=== PATIENT | female | born 1935 | race Caucasian/White ===

== ENCOUNTER 2019-02-15 18:16 | Emergency (ER) | payer MEDICARE, OTHER ==
[~2019-02-15] VITALS: Ht 152.4 cm; Wt 59.1 kg
[2019-02-15 18:20] VITALS: Ht 152.4 cm; Wt 59.1 kg
--- NOTE | 2019-02-15 18:30 | ERD ---
ER Documentation Chief Complaint Chief Complaint CHEST PAIN, BACK PAIN, WEAKNESS, ONSET TODAY HPI 83-year-old female brought in by daughter complaining of chest pain, back pain, and generalized weakness. This started this morning. She has had episodes of these pains with associated diaphoresis and shaking per her daughter. A few days ago she had similar symptoms and was taken to [facility]. At that time all her tests were reportedly normal. She was advised admission, however patient refused and daughter took her home. She is not sure if the patient has had fevers. Patient currently states that she is not having any symptoms. She is unable to tell me more about her symptoms as she does not remember, likely secondary to her Alzheimer's dementia. Daughter also has noticed that the patient has had urinary frequency but has only minimal urine output when she goes to the restroom. However she has not been complaining of any pain with urination. ROS Limited due to memory problems Medications Home Meds Active Scripts Cephalexin* (Keflex*) 500 Mg Capsule, 500 MG PO BID for 7 Days, CAP Prov:PAT GERARDO MD 02/15/19 Allergies Allergies: Coded Allergies: No Known Allergy (Unverified , 02/15/19) PMhx/Soc History of Surgery: Yes (Cardiac stents x3) Hx Cardiac Disorders: Yes (Hypertension, CAD, history of VT 15 years ago) Hx Alcohol Use: No Hx Substance Use: No Hx Tobacco Use: No Smoking Status: Never smoker FmHx Family History: No diabetes Physical Exam Vitals Vital Signs Date Temp Pulse Resp B/P (MAP) Pulse Ox O2 O2 Flow FiO2 Time Delivery Rate 02/15/19 98.4 86 15 143/80 99 Room Air 19:15 (101) 02/15/19 97.8 101 18 143/80 97 18:20 (101) Physical Exam Const: No acute distress Head: Atraumatic Eyes: Normal Conjunctiva, PERRLA, EOMI ENT: Normal External Ears, Nose and Mouth. Neck: Full range of motion. No meningismus. Resp: Clear to auscultation bilaterally Cardio: Regular rate and rhythm, no murmurs. 2+ distal pulses in all 4 extremities Abd: Soft, non tender, non distended. Normal bowel sounds Skin: No petechiae or rashes Back: No midline or flank tenderness Ext: No cyanosis, or edema Neur: Awake and alert, normal speech, no facial asymmetry, moving all extremities. Following commands. Psych: Normal Mood and Affect Result Diagram: 02/15/19183302/15/191833 Results 24 hrs Laboratory Tests Test 02/15/19 18:34 02/15/19 19:02 White Blood Count 9.1 10^3/ul Red Blood Count 4.38 10^6/ul Hemoglobin 11.9 g/dl Hematocrit 38.2 % Mean Corpuscular Volume 87.2 fl Mean Corpuscular Hemoglobin 27.2 pg Mean Corpuscular Hemoglobin Concent 31.2 g/dl Red Cell Distribution Width 14.3 % Platelet Count 398 10^3/UL Mean Platelet Volume 9.9 fl Immature Granulocytes % 0.200 % Neutrophils % 73.3 % Lymphocytes % 17.0 % Monocytes % 7.4 % Eosinophils % 1.6 % Basophils % 0.5 % Nucleated Red Blood Cells % 0.0 /100WBC Immature Granulocytes # 0.020 10^3/ul Neutrophils # 6.7 10^3/ul Lymphocytes # 1.6 10^3/ul Monocytes # 0.7 10^3/ul Eosinophils # 0.2 10^3/ul Basophils # 0.1 10^3/ul Nucleated Red Blood Cells # 0.0 10^3/ul Urine Color YELLOW Urine Clarity CLEAR Urine pH 5.0 Urine Specific [place] 1.014 Urine Ketones TRACE mg/dL Urine Nitrite NEGATIVE mg/dL Urine Bilirubin NEGATIVE mg/dL Urine Urobilinogen NEGATIVE mg/dL Urine Leukocyte Esterase NEGATIVE Mitchell/ul Urine Hemoglobin NEGATIVE mg/dL Urine Glucose NEGATIVE mg/dL Urine Total Protein NEGATIVE mg/dl Sodium Level 142 mmol/L Potassium Level 4.3 mmol/L Chloride Level 105 mmol/L Carbon Dioxide Level 27 mmol/L Anion Gap 10 Blood Urea Nitrogen 17 mg/dl Creatinine 0.75 mg/dl Est Glomerular Filtrat Rate mL/min mL/min Glucose Level 113 mg/dl Calcium Level 9.3 mg/dl Total Bilirubin 0.4 mg/dl Direct Bilirubin 0.00 mg/dl Indirect Bilirubin 0.4 mg/dl Aspartate Amino Transf (AST/SGOT) 22 IU/L Alanine Aminotransferase (ALT/SGPT) 24 IU/L Alkaline Phosphatase 60 IU/L Troponin I < 0.012 ng/ml Total Protein 7.0 g/dl Albumin 4.0 g/dl Globulin 3.00 g/dl Albumin/Globulin Ratio 1.33 Bedside Urine pH (LAB) 6.0 Bedside Urine Protein (LAB) 1+ Bedside Urine Glucose (UA) Negative Bedside Urine Ketones (LAB) Trace Bedside Urine Blood Trace-intact Bedside Urine Nitrite (LAB) Negative Bedside Urine Leukocyte Esterase (L 3+ Current Medications Medications Dose Sig/Umu Start Time Status Last (Trade) Ordered Route PRN Stop Time Admin Dose Reason Admin Sodium 1,000 ml @ Q1H STAT 02/15/19 DC 02/15/19 Chloride 1,000 mls/hr IV 19:12 19:24 02/15/19 20:11 Ceftriaxone 50 ml @ ONCE STAT 02/15/19 DC 02/15/19 Sodium 100 mls/hr IVPB 19:12 19:24 02/15/19 19:41 Procedures/MDM EMERGENT LABS AND DIAGNOSTIC STUDIES: Lab Results above were reviewed and interpreted by me. CBC: no clinically significant anemia or evidence of infection CMP: No evidence of clinically significant electrolyte abnormality, acidosis, renal failure, hypoglycemia, liver disease, or biliary obstruction Troponin within normal limits, not indicative of cardiac ischemia Urine dip concerning for infection with 3+ leuk esterase Urinalysis shows ketones, no other acute abnormalities 12-lead EKG #1 was interpreted by Carolyn Gerardo MD: Normal sinus rhythm at 98 bpm Left deviation axis Normal intervals No acute ST or T wave changes suggestive of acute ischemia or STEMI. EKG #2: Rate/Rhythm: Normal Sinus Rhythm QRS, ST, T-waves: No changes consistent w/ acute ischemia Impression: No evidence of ischemia or arrhythmia Radiology Results as interpreted by Radiology below were reviewed by SRianna Gerardo MD: Chest x-ray shows no acute abnormalities Initial Nursing notes reviewed. Previous Medical Records requested via the Electronic Health Record. EMERGENCY DEPARTMENT COURSE / MEDICAL DECISION MAKING: patient presents with complaints of chest pain and back pain, now resolved. Vitals are unremarkable. Basic labs were done and did not show any significant abnormalities. Troponin is within normal limits. EKG shows no signs of ischemia or arrhythmia. Chest x-ray is unremarkable. Patient has been asymptomatic while here. She was noted to have a possible UTI and with her symptoms, I cannot rule out a UTI at this time. I recommended IV fluids and IV antibiotics, and daughter was agreeable. I did offer her admission for further work-up for her chest pain, however patient and daughter want to go home and will follow up with her roll edge stitcher hand tomorrow. Return precautions given. Patient's blood pressure was elevated (>120/80) but appears stable without evidence of hypertensive emergency or urgency. The patient was counseled about the risks of hypertension and urged to pursue outpatient monitoring and therapy within a week with their primary care physician. Departure Diagnosis: Primary Impression: Chest pain Chest pain type: unspecified Qualified Codes: R07.9 - Chest pain, unspecified Additional Impression: Urinary frequency Condition: PAT Iqbal MD Feb 15, 2019 18:30
[2019-02-15] MEDS ORDERED: SOD CHLORIDE 0.9% 1,000 ML IV STA (19:12)
[2019-02-15] MEDS ORDERED: CEFTRIAXONE 1 GM/50 ML (PMX) 50 ML IVPB STA (19:12)
[2019-02-15 19:15] VITALS: BP 143/80; PULSE 86; RESP 15
[2019-02-15] MEDS ORDERED: CEPH-443 PO (20:47)
== END 2019-02-15 21:24 | disposition home or self-care (01) ==
LOC: E/R 18:16
DX: R07.9 Chest pain, unspecified (principal); I10 Essential (primary) hypertension; I25.10 Atherosclerotic heart disease of native coronary artery without angina pectoris; I25.2 Old myocardial infarction; R35.0 Frequency of micturition; Z98.61 Coronary angioplasty status
CPT/HCPCS: 36415; 71045; 80053; 81003; 84484; 85025; 93005; 96374; 99285; J0696; J7030

== ENCOUNTER 2019-02-28 17:51 | Inpatient (IN) | payer MEDICARE, OTHER ==
[~2019-02-28] VITALS: Ht 154.9 cm; Wt 61.9 kg
[~2019-02-28 17:51] MED LIST: CEPH-443 PO
[2019-02-28] MEDS ORDERED: SOD CHLORIDE 0.9% 500 ML IV STA (18:05)
[2019-02-28] MEDS ORDERED: SOD CHLORIDE 0.9% 1,000 ML IV STA (18:05)
--- NOTE | 2019-02-28 18:24 | ERD ---
ER Documentation Chief Complaint Chief Complaint WEAKNESS SINCE YESTERDAY. DX UTI LAST WEEK HPI 83-year-old female with a history of CAD and Alzheimer's dementia brought in by daughter from home due to altered mental status since yesterday. This morning she was having some difficulty swallowing. She has been very somnolent today and difficult to arouse per daughter. Daughter has been carrying her to the bathroom to use the toilet. Patient normally walks. She has had no recent fevers, vomiting, diarrhea, or any complaints. Otherwise history is limited as the patient is unresponsive. Last seen normal at 12 noon yesterday. ROS Unable to obtain as patient is altered and not answering questions Medications Home Meds Active Scripts Cephalexin* (Keflex*) 500 Mg Capsule, 500 MG PO BID for 7 Days, CAP Prov:PAT GERARDO MD 02/15/19 Allergies Allergies: Coded Allergies: No Known Allergy (Unverified , 02/15/19) PMhx/Soc History of Surgery: Yes (Cardiac stents x3) Anesthesia Reaction: No Hx Neurological Disorder: No Hx Respiratory Disorders: No Hx Cardiac Disorders: Yes (Hypertension, CAD, history of SD 15 years ago) Hx Psychiatric Problems: Yes (DEPRESSION ) Hx Miscellaneous Medical Probl: No Hx Alcohol Use: No Hx Substance Use: No Hx Tobacco Use: No Smoking Status: Never smoker FmHx Unable to obtain Physical Exam Vitals Vital Signs Date Temp Pulse Resp B/P (MAP) Pulse Ox O2 O2 Flow FiO2 Time Delivery Rate 02/28/19 100.2 20:59 02/28/19 94 23 127/57 97 Room Air 20:25 (80) 02/28/19 Nasal 2 19:14 Cannula 02/28/19 98.6 114 16 96/32 (53) 95 18:03 Physical Exam INITIAL VITAL SIGNS: Reviewed by me GENERAL: Patient is lying on gurney HEAD: Normocephalic EYES: Resists eye opening. PERRL. No icterus. No pallor. Lids, lashes, and conjunctiva clear. ENT: Mucous membranes dry, no erythema or tonsillar exudates. Airway patent. NECK: Supple. No masses. Full range of motion. No meningismus. No lymphadenopathy RESPIRATORY: Clear to auscultation bilaterally. No wheezing, No rales, No rhonchi. No accessory muscle use. No retractions. CV: Tachycardic with regular rhythm. No murmurs, No rubs or gallops.. 2+ distal pulses in all 4 extremities ABDOMEN: Soft, non-distended, non-tender. No guarding. No rebound. No pulsatile mass. Bowel sounds normal. BACK: Non-tender. No CVA tenderness. EXTREMITIES: No edema. No clubbing or cyanosis. Pulses symmetric. No deficits or delays. Calves non-tender. No cords. SKIN: Warm and dry. Decreased turgor. No obvious rash, petechiae or purpura. NEUROLOGIC: Obtunded, moans to painful stimuli. Withdraws from painful stimuli. Increased tone in all 4 extremities. No obvious facial asymmetry. Result Diagram: 02/28/19182302/28/191823 Results 24 hrs Laboratory Tests Test 02/28/19 18:18 02/28/19 18:22 02/28/19 18:24 POC Venous Lactate 1.9 mmol/L Urine Color YELLOW Urine Clarity SLIGHTLY CLOUDY Urine pH 5.0 Urine Specific [place] 1.025 Urine Ketones NEGATIVE mg/dL Urine Nitrite NEGATIVE mg/dL Urine Bilirubin NEGATIVE mg/dL Urine Urobilinogen NEGATIVE mg/dL Urine Leukocyte Esterase 1+ Mitchell/ul Urine Microscopic RBC 7 /HPF Urine Microscopic WBC 15 /HPF Urine Squamous Epithelial Cells FEW /HPF Urine Mucus FEW /HPF Urine Hemoglobin NEGATIVE mg/dL Urine Glucose NEGATIVE mg/dL Urine Total Protein NEGATIVE mg/dl Urine Opiates Screen Negative Urine Barbiturates Negative Urine Amphetamines Screen Negative Urine Benzodiazepines Screen Negative Urine Cocaine Screen Negative Urine Cannabinoids Negative White Blood Count 10.9 10^3/ul Red Blood Count 4.27 10^6/ul Hemoglobin 11.7 g/dl Hematocrit 36.6 % Mean Corpuscular Volume 85.7 fl Mean Corpuscular Hemoglobin 27.4 pg Mean Corpuscular 32.0 g/dl Hemoglobin Concent Red Cell Distribution Width 14.8 % Platelet Count 358 10^3/UL Mean Platelet Volume 10.1 fl Immature Granulocytes % 0.500 % Neutrophils % 76.1 % Lymphocytes % 13.0 % Monocytes % 9.0 % Eosinophils % 0.9 % Basophils % 0.5 % Nucleated Red Blood Cells % 0.0 /100WBC Immature Granulocytes # 0.050 10^3/ul Neutrophils # 8.3 10^3/ul Lymphocytes # 1.4 10^3/ul Monocytes # 1.0 10^3/ul Eosinophils # 0.1 10^3/ul Basophils # 0.1 10^3/ul Nucleated Red Blood Cells # 0.0 10^3/ul Prothrombin Time 12.6 Sec Prothrombin Time Ratio 1.0 INR International 0.93 Normalized Ratio Activated Partial Thromboplast 29.7 Sec Time Sodium Level 141 mmol/L Potassium Level 3.5 mmol/L Chloride Level 105 mmol/L Carbon Dioxide Level 28 mmol/L Anion Gap 8 Blood Urea Nitrogen 17 mg/dl Creatinine 0.80 mg/dl Est Glomerular Filtrat mL/min Rate mL/min Glucose Level 154 mg/dl Calcium Level 9.2 mg/dl Total Bilirubin 0.5 mg/dl Direct Bilirubin 0.00 mg/dl Indirect Bilirubin 0.5 mg/dl Aspartate Amino Transf (AST/SGOT) 23 IU/L Alanine 26 IU/L Aminotransferase (ALT/SGPT) Alkaline Phosphatase 49 IU/L Troponin I < 0.012 ng/ml Total Protein 6.7 g/dl Albumin 3.7 g/dl Globulin 3.00 g/dl Albumin/Globulin Ratio 1.23 Salicylates Level < 1.0 mg/dl Acetaminophen Level < 10.0 ug/ml Ethyl Alcohol Level < 10.0 mg/dl Current Medications Medications Dose Sig/Umu Start Time Status Last (Trade) Ordered Route PRN Stop Time Admin Dose Reason Admin Sodium 500 ml @ Q1H STAT 02/28/19 DC 02/28/19 Chloride 500 mls/hr IV 18:05 02/28/19 19:44 19:04 Sodium 1,000 ml @ Q1H STAT 02/28/19 DC 02/28/19 Chloride 1,000 mls/hr IV 18:05 02/28/19 18:24 19:04 Ceftriaxone 50 ml @ ONCE ONCE 02/28/19 DC 02/28/19 Sodium 100 mls/hr IVPB 20:00 02/28/19 20:19 20:29 Ondansetron 4 mg ER BRIDGE 02/28/19 HCl (Zofran PRN IV 20:00 03/01/19 Inj) NAUSEA/VOMITI 19:59 NG 650 mg ER BRIDGE 02/28/19 Acetaminophen PRN PO 20:00 03/01/19 (Tylenol .MILD PAIN 19:59 Tab) 1-3 OR TEMP Procedures/MDM EMERGENT LABS AND DIAGNOSTIC STUDIES: Lab Results above were reviewed and interpreted by me. CBC: no anemia or evidence of infection CMP: No evidence of clinically significant electrolyte abnormality, acidosis, renal failure, hypoglycemia, liver disease, or biliary obstruction Troponin within normal limits, not indicative of cardiac ischemia UA: Evidence of possible UTI. Culture pending 12-lead EKG was interpreted by Carolyn Gerardo MD: Sinus tachycardia at 114 bpm Normal axis Normal intervals Inferior Q waves No acute ST or T wave changes suggestive of acute ischemia or STEMI. Radiology Results as interpreted by Radiology below were reviewed by Yanet Gerardo MD: Chest x-ray: No acute abnormalities CT head: no acute abnormalities Initial Nursing notes reviewed. Previous Medical Records requested via the Electronic Health Record. EMERGENCY DEPARTMENT COURSE / MEDICAL DECISION MAKING: Patient is presenting with acute altered mental status. Vitals are notable for mild tachycardia. She is protecting her airway at this time and does not require intubation. Labs did not show any significant abnormalities other than possible UTI. She was treated with antibiotics and IV fluids. Patient may also be dehydrated and this may be causing her altered mental status. However I cannot rule out stroke at this time although CT head is negative. MRI brain was ordered and is pending. Patient will be admitted for further work-up and management. Critical Care Time: 35 minutes Treatments/Evaluations: Close monitoring and treatment of unstable vital signs, cardiorespiratory, and neurologic status, while maintaining tight balance of fluid, respiratory, and cardiac interventions. This time includes discussing the case with the patient and the patients family. This time does not include all procedures stated elsewhere in this record. This time also includes reviewing old records, labs and radiological studies. This time includes examining and re- examining the patient. Additionally, this time also includes arranging care with admitting and consulting physicians. Accepting Care Team: Current data and ongoing care discussed. Time: Time of admission Primary Provider: Dr Polanco Outstanding Data: MRI Brain, UCx Departure Diagnosis: Primary Impression: Acute encephalopathy Additional Impression: Abnormal finding on urinalysis Condition: Serious PAT GERARDO MD Feb 28, 2019 18:24
[2019-02-28] MEDS ORDERED: CEFTRIAXONE 1 GM/50 ML (PMX) 50 ML IVPB ONE (20:00)
[2019-02-28] MEDS ORDERED: ACETAMINOPHEN 325 MG TAB PO PRN (20:00)
[2019-02-28] MEDS ORDERED: ONDANSETRON 4 MG INJ IV PRN (20:00)
[2019-02-28] MEDS ORDERED: ACETAMINOPHEN 650 MG SUPP PR PRN (23:00)
[2019-03-01] VITALS (7 sets, daily range): BP systolic 114–162; BP diastolic 55–76; PULSE 91–118; RESP 18–24; Ht 154.9 cm; Wt 61.9 kg
[2019-03-01] MEDS: D5W-0.45 NACL + KCL 20 MEQ 1,000 ML IV SCH ×2 (00:40→12:20)
[2019-03-01] MEDS ORDERED: ACETAMINOPHEN 650 MG SUPP PR PRN (02:30)
[2019-03-01] MEDS: CEFTRIAXONE 1 GM/50 ML (PMX) 50 ML IVPB SCH (08:32)
[2019-03-01] MEDS: ENOXAPARIN 40 MG/0.4 ML SYG SC SCH (08:40)
--- NOTE | 2019-03-01 12:10 | HP ---
Date/Time of Note Date/Time of Note DATE: 03/01/19 TIME: 12:06 Assessment/Plan VTE Prophylaxis SCD applied (from Nsg): Yes Pharmacological prophylaxis: LMWH Lines/Catheters IV Catheter Type (from Nrsg): Peripheral IV Urinary Cath still in place: Yes Reason Cath still needed: urinary retention Assessment/Plan Assessment/Plan -Altered mental status. Rule out acute stroke. CT of the brain is negative for acute stroke. MRI of the brain. Will obtain TSH. Dr. Chao is asked to see cathryn le in neurology consultation. -UTI per UA, continue Rocephin follow-up on final culture. -Coronary artery disease status post stent placement. Continue Plavix. Dr. Rush is asked to see patient in cardiology consultation. -Hypertension, continue metoprolol and Norvasc. -Acute encephalopathy -Alzheimer dementia Further recommendations based on clinical course. Plan of care discussed with Dr. Polanco. Result Diagram: 03/01/1928 03/01/19527 Results 24hrs Laboratory Tests Test 02/28/19 18:18 02/28/19 18:22 02/28/19 18:24 03/01/19 05:28 POC Venous Lactate 1.9 Urine Color YELLOW Urine Clarity SLIGHTLY CLOUDY A Urine pH 5.0 Urine Specific 1.025 [place] Urine Ketones NEGATIVE Urine Nitrite NEGATIVE Urine Bilirubin NEGATIVE Urine Urobilinogen NEGATIVE Urine Leukocyte 1+ H Esterase Urine Microscopic 7 H RBC Urine Microscopic 15 H WBC Urine Squamous FEW Epithelial Cells Urine Mucus FEW A Urine Hemoglobin NEGATIVE Urine Glucose NEGATIVE Urine Total NEGATIVE Protein Urine Opiates Negative Screen Urine Barbiturates Negative Urine Amphetamines Negative Screen Urine Negative Benzodiazepines Screen Urine Cocaine Negative Screen Urine Cannabinoids Negative White Blood Count 10.9 H 9.5 Red Blood Count 4.27 3.90 L Hemoglobin 11.7 L 10.7 L Hematocrit 36.6 L 32.9 L Mean Corpuscular 85.7 84.4 Volume Mean Corpuscular 27.4 L 27.4 L Hemoglobin Mean Corpuscular 32.0 32.5 Hemoglobin Concent Red Cell 14.8 H 14.9 H Distribution Width Platelet Count 358 304 Mean Platelet 10.1 10.4 Volume Immature 0.500 H 0.300 Granulocytes % Neutrophils % 76.1 77.2 H Lymphocytes % 13.0 L 12.4 L Monocytes % 9.0 8.0 Eosinophils % 0.9 1.5 Basophils % 0.5 0.6 Nucleated Red 0.0 0.0 Blood Cells % Immature 0.050 H 0.030 Granulocytes # Neutrophils # 8.3 H 7.3 Lymphocytes # 1.4 1.2 Monocytes # 1.0 H 0.8 Eosinophils # 0.1 0.1 Basophils # 0.1 0.1 Nucleated Red 0.0 0.0 Blood Cells # Prothrombin Time 12.6 Prothrombin Time 1.0 Ratio INR International 0.93 Normalized Ratio Activated 29.[address] Time Sodium Level 141 142 Potassium Level 3.5 3.9 Chloride Level 105 110 Carbon Dioxide 28 25 Level Anion Gap 8 7 Blood Urea 17 13 Nitrogen Creatinine 0.80 0.57 Est Glomerular Filtrat Rate mL/min Glucose Level 154 131 Calcium Level 9.2 8.8 Total Bilirubin 0.5 Direct Bilirubin 0.00 Indirect Bilirubin 0.5 Aspartate Amino 23 Transf (AST/SGOT) Alanine 26 Aminotransferase ( ALT/SGPT) Alkaline 49 Phosphatase Troponin I < 0.012 Total Protein 6.7 Albumin 3.7 Globulin 3.00 Albumin/Globulin 1.23 Ratio Salicylates Level < 1.0 L Acetaminophen < 10.0 L Level Ethyl Alcohol < 10.0 H Level Ammonia < 9 L Vitamin B12 Level 395 Thyroid 0.990 Stimulating Hormone (TSH) Free Thyroxine 1.61 HPI/ROS Admit Date/Time Admit Date/Time Feb 28, 2019 at 19:52 Hx of Present Illness The patient is 83-year-old female with history of coronary artery disease status post multiple cardiac stent placements, HTN, and Alzheimer dementia was brought to emergency room by her daughter from home due to altered mental status. Tori ent is become very somnolent somnolent since 12 noon yesterday. No fever or vomiting diarrhea were reported. Urinalysis was indicative of urinary tract infection. Patient was started on Rocephin and admitted for further evaluation and management to telemetry floor. Patient underwent a CT of the brain which was negative for any acute pathology. During the examination on the unit patient is awake alert and communicative however overall demented and cannot provide any history. Most of the history was obtained from patient's daughter and medical records. Patient had a history of cardiac stent placement in 1999 and [address] Rubio in cardiology consultation as an outpatien t. Patient is admitted to medic to telemetry floor. ROS 12 point review of system is negative except for what mentioned in HPI PMH/Family/Social Past Medical History Medical History: coronary artery disease, hypertension, other (Alzheimer's dementia) Medications Current Medications Ondansetron HCl (Zofran Inj) 4 mg ER BRIDGE PRN IV NAUSEA/VOMITING; Start 02/28/19 at 20:00; Stop 03/01/19 at 19:59 Acetaminophen (Tylenol Tab) 650 mg ER BRIDGE PRN PO .MILD PAIN 1-3 OR TEMP; Start 02/28/19 at 20:00; Stop 03/01/19 at 19:59 Potassium Chloride/Dextrose/ Sod Cl 1,000 ml @ 75 mls/hr [id number] IV Last administered on 03/01/19at 00:40; Admin Dose 75 MLS/HR; Start 02/28/19 at 23:00 Ceftriaxone Sodium 50 ml @ 100 mls/hr Q24H IVPB Last administered on 03/01/19at 08:32; Admin Dose 100 MLS/HR; Start 03/01/19 at 09:00 Enoxaparin Sodium (Lovenox) 40 mg DAILY SC Last administered on 03/01/19at 08:40; Admin Dose 40 MG; Start 03/01/19 at 09:00 Acetaminophen (Tylenol Supp) 650 mg Q6H PRN TN PAIN LEVEL 1-5; Start 03/01/19 at 02:30 Acetaminophen (Tylenol Tab) 650 mg Q6H PRN PO MILD PAIN(1-3)OR ELEVATED TEMP; Start 03/01/19 at 02:30 Coded Allergies: No Known Allergy (Unverified , 02/15/19) Past Surgical History Past Surgical Hx: other (S/p multiple cardiac stents placement in 1999 and 2002) Family History Significant Family History: no pertinent family hx Social History Alcohol Use: none Smoking Status: Never smoker Drug Use: none Exam/Review of Systems Vital Signs Vitals Vital Signs Date Temp Pulse Resp B/P (MAP) Pulse Ox O2 O2 Flow FiO2 Time Delivery Rate 03/01/19 99.2 118 22 131/62 97 Nasal 11:57 (85) Cannula 03/01/19 2.0 07:35 Intake and Output 02/28/19 02/28/19 03/01/19 1515:00 23:00 07:00 IntakeIntake Total 300 ml OutputOutput Total 500 ml BalanceBalance -200 ml Exam Constitutional: alert Head: normocephalic Neck: supple Respiratory: clear to auscultation Cardiovascular: regular rate and rhythm Gastrointestinal: soft, non-tender Musculoskeletal: nl extremities to inspection Extremities: normal pulses Neurological: confused GLEN SARMIENTO Mar 01, 2019 12:10
[2019-03-01] MEDS ORDERED: RISPERIDONE 1 MG TAB PO PRN (12:30)
[2019-03-01] MEDS: METOPROLOL 50 MG TAB PO SCH (13:26)
[2019-03-01] MEDS: CLOPIDOGREL 75 MG TAB PO SCH (13:27)
[2019-03-01] MEDS: ACETAMINOPHEN 325 MG TAB PO PRN (13:31)
[2019-03-01] MEDS ORDERED: METO-319 PO (15:49)
[2019-03-01] MEDS ORDERED: CLOP75TA27 PO (15:49)
[2019-03-01] MEDS ORDERED: GABA100C14 PO (15:49)
[2019-03-01] MEDS ORDERED: ATOR40TA68 PO (15:49)
[2019-03-01] MEDS ORDERED: AMLO5TAB4 PO (15:49)
[2019-03-01] MEDS ORDERED: DULO60CA6 PO (15:49)
[2019-03-01] MEDS ORDERED: RISP1TAB3 PO (15:53)
--- NOTE | 2019-03-01 18:16 | CONS ---
Assessment/Plan Assessment/Plan Hospital Course (Demo Recall) Sinus tachycardia SIRS Encephalopathy CAD with history of PCI Patient with an altered mental status and possible sepsis Telemetry reviewed with sinus tachycardia with overall mild improvement in heart rates Tachycardia likely secondary to overall medical condition. We will continue beta-jong Antibiotics as per primary team We will check echocardiogram Consultation Date/Type/Reason Admit Date/Time Feb 28, 2019 at 19:52 Type of Consult Cardiology Reason for Consultation Tachycardia Date/Time of Note DATE: 03/01/19 TIME: 18:11 Hx of Present Illness This is an 83-year-old female with past medical history of coronary artery disease who was admitted with altered mental status. As per the medical chart, patient was being treated for UTI over the past week. Patient currently not answering questions. She does look at me when her name is called and is currently eating. As per nurse, she is been confused but slightly better this afternoon. Unable to be performed at the current time given patient's mental status Past Medical History Medical History: coronary artery disease, high cholesterol, hypertension Home Meds Reported Medications Risperidone* (Risperidone*) 1 Mg Tablet, 1 MG PO TID PRN for AGITATION/ANXIETY, TAB 03/01/19 Duloxetine Hcl* (Cymbalta*) 60 Mg Capsule.dr, 60 MG PO DAILY, CAP 03/01/19 Clopidogrel Bisulfate (Clopidogrel) 75 Mg Tablet, 75 MG PO DAILY, #30 TAB 03/01/19 Gabapentin* (Gabapentin*) 100 Mg Capsule, 100 MG PO TID, #90 CAP 03/01/19 Amlodipine Besylate* (Norvasc*) 5 Mg Tablet, 5 MG PO DAILY, TAB 03/01/19 Atorvastatin* (Atorvastatin*) 40 Mg Tablet, 40 MG PO QHS, #30 TAB 03/01/19 Metoprolol Succinate* (Toprol XL*) 50 Mg Tab.er.24h, 50 MG PO DAILY, #30 TAB 03/01/19 Discontinued Scripts Cephalexin* (Keflex*) 500 Mg Capsule, 500 MG PO BID for 7 Days, CAP Prov:PAT FUENTES MD 02/15/19 Medications Current Medications Potassium Chloride/Dextrose/ Sod Cl 1,000 ml @ 75 mls/hr [id number] IV Last administered on 03/01/19at 12:20; Admin Dose 75 MLS/HR; Start 02/28/19 at 23:00 Ceftriaxone Sodium 50 ml @ 100 mls/hr Q24H IVPB Last administered on 03/01/19at 08:32; Admin Dose 100 MLS/HR; Start 03/01/19 at 09:00 Enoxaparin Sodium (Lovenox) 40 mg DAILY SC Last administered on 03/01/19 08:40; Admin Dose 40 MG; Start 03/01/19 at 09:00 Acetaminophen (Tylenol Supp) 650 mg Q6H PRN IN PAIN LEVEL 1-5; Start 03/01/19 at 02:30 Acetaminophen (Tylenol Tab) 650 mg Q6H PRN PO MILD PAIN(1-3)OR ELEVATED TEMP Last administered on 03/01/19 13:31; Admin Dose 650 MG; Start 03/01/19 at 02:30 Clopidogrel Bisulfate (plaVIX) 75 mg DAILY PO Last administered on 03/01/19 13:27; Admin Dose 75 MG; Start 03/01/19 at 12:30 Metoprolol Tartrate (Lopressor) 50 mg DAILY PO Last administered on 03/01/19 13:26; Admin Dose 50 MG; Start 03/01/19 at 12:30 Amlodipine Besylate (Norvasc) 2.5 mg DAILY PO ; Start 03/02/19 at 09:00 Risperidone (Risperdal) 1 mg BID PRN PO agitation; Start 03/01/19 at 12:30 Allergies: Coded Allergies: No Known Allergy (Unverified , 02/15/19) Past Surgical History Past Surgical Hx: angioplasty, other (S/p multiple cardiac stents placement in 1999 and 2002) Social History Alcohol Use: none Smoking Status: Never smoker Drug Use: none Exam/Review of Systems Vital Signs Vitals Vital Signs Date Temp Pulse Resp B/P (MAP) Pulse Ox O2 O2 Flow FiO2 Time Delivery Rate 03/01/19 98.4 91 24 114/55 99 Nasal 15:37 (74) Cannula 03/01/19 2.0 07:35 Intake and Output 02/28/19 02/28/19 03/01/19 1515:00 23:00 07:00 IntakeIntake Total 300 ml OutputOutput Total 500 ml BalanceBalance -200 ml Exam Exam Awake, eating lunch, not answering questions, appears confused at times, no apparent distress Head: normocephalic Respiratory: other (Coarse breath sounds bilaterally, no wheezing) Cardiovascular: regular rate and rhythm (S1-S2 heard) Gastrointestinal: soft, non-tender, bowel sounds Extremities: edema (Trace) Labs Result Diagram: 03/01/19 0503/01/19 0528 Results 24hrs Laboratory Tests Test 02/28/19 18:18 02/28/19 18:22 02/28/19 18:24 03/01/19 05:28 POC Venous Lactate 1.9 Urine Color YELLOW Urine Clarity SLIGHTLY CLOUDY A Urine pH 5.0 Urine Specific 1.025 Lindsay Urine Ketones NEGATIVE Urine Nitrite NEGATIVE Urine Bilirubin NEGATIVE Urine Urobilinogen NEGATIVE Urine Leukocyte 1+ H Esterase Urine Microscopic 7 H RBC Urine Microscopic 15 H WBC Urine Squamous FEW Epithelial Cells Urine Mucus FEW A Urine Hemoglobin NEGATIVE Urine Glucose NEGATIVE Urine Total NEGATIVE Protein Urine Opiates Negative Screen Urine Barbiturates Negative Urine Amphetamines Negative Screen Urine Negative Benzodiazepines Screen Urine Cocaine Negative Screen Urine Cannabinoids Negative White Blood Count 10.9 H 9.5 Red Blood Count 4.27 3.90 L Hemoglobin 11.7 L 10.7 L Hematocrit 36.6 L 32.9 L Mean Corpuscular 85.7 84.4 Volume Mean Corpuscular 27.4 L 27.4 L Hemoglobin Mean Corpuscular 32.0 32.5 Hemoglobin Concent Red Cell 14.8 H 14.9 H Distribution Width Platelet Count 358 304 Mean Platelet 10.1 10.4 Volume Immature 0.500 H 0.300 Granulocytes % Neutrophils % 76.1 77.2 H Lymphocytes % 13.0 L 12.4 L Monocytes % 9.0 8.0 Eosinophils % 0.9 1.5 Basophils % 0.5 0.6 Nucleated Red 0.0 0.0 Blood Cells % Immature 0.050 H 0.030 Granulocytes # Neutrophils # 8.3 H 7.3 Lymphocytes # 1.4 1.2 Monocytes # 1.0 H 0.8 Eosinophils # 0.1 0.1 Basophils # 0.1 0.1 Nucleated Red 0.0 0.0 Blood Cells # Prothrombin Time 12.6 Prothrombin Time 1.0 Ratio INR International 0.93 Normalized Ratio Activated 29.[address] Time Sodium Level 141 142 Potassium Level 3.5 3.9 Chloride Level 105 110 Carbon Dioxide 28 25 Level Anion Gap 8 7 Blood Urea 17 13 Nitrogen Creatinine 0.80 0.57 Est Glomerular Filtrat Rate mL/min Glucose Level 154 131 Calcium Level 9.2 8.8 Total Bilirubin 0.5 Direct Bilirubin 0.00 Indirect Bilirubin 0.5 Aspartate Amino 23 Transf (AST/SGOT) Alanine 26 Aminotransferase ( ALT/SGPT) Alkaline 49 Phosphatase Troponin I < 0.012 Total Protein 6.7 Albumin 3.7 Globulin 3.00 Albumin/Globulin 1.23 Ratio Salicylates Level < 1.0 L Acetaminophen < 10.0 L Level Ethyl Alcohol < 10.0 H Level Ammonia < 9 L Vitamin B12 Level 395 Thyroid 0.990 Stimulating Hormone (TSH) Free Thyroxine 1.61 Medications Medications Current Medications Potassium Chloride/Dextrose/ Sod Cl 1,000 ml @ 75 mls/hr [id number] IV Last administered on 03/01/19 12:20; Admin Dose 75 MLS/HR; Start 02/28/19 at 23:00 Ceftriaxone Sodium 50 ml @ 100 mls/hr Q24H IVPB Last administered on 03/01/19 08:32; Admin Dose 100 MLS/HR; Start 03/01/19 at 09:00 Enoxaparin Sodium (Lovenox) 40 mg DAILY SC Last administered on 03/01/19 08:40; Admin Dose 40 MG; Start 03/01/19 at 09:00 Acetaminophen (Tylenol Supp) 650 mg Q6H PRN IN PAIN LEVEL 1-5; Start 03/01/19 at 02:30 Acetaminophen (Tylenol Tab) 650 mg Q6H PRN PO MILD PAIN(1-3)OR ELEVATED TEMP Last administered on 03/01/19 13:31; Admin Dose 650 MG; Start 03/01/19 at 02:30 Clopidogrel Bisulfate (plaVIX) 75 mg DAILY PO Last administered on 03/01/19 13:27; Admin Dose 75 MG; Start 03/01/19 at 12:30 Metoprolol Tartrate (Lopressor) 50 mg DAILY PO Last administered on 03/01/19 13:26; Admin Dose 50 MG; Start 03/01/19 at 12:30 Amlodipine Besylate (Norvasc) 2.5 mg DAILY PO ; Start 03/02/19 at 09:00 Risperidone (Risperdal) 1 mg BID PRN PO agitation; Start 03/01/19 at 12:30 Noel Rush DO Mar 01, 2019 18:16
--- NOTE | 2019-03-01 20:59 | CONSI ---
Assessment/Plan Assessment/Plan Assessment/Plan (Recall) 83 F c/ dementia and other comorbidities, who presents for evaluation of ams. UA +...which could certainly precipitate an acute toxic-metabolic on chronic encephalopathy.. A focal LUNG SPLITTER process, is, though, not entirely excluded.... CT Head is without obvious acute intracranial pathology.. P: Await MRI brain for further characterization Continued medical management and supportive care per primary [place] as able Limit sedating medications where possible PT/OT/ST as tolerated Consider EEG if her mental status begins to noticeably fluctuate. Will follow clinically Consultation Date/Type/Reason Admit Date/Time Feb 28, 2019 at 19:52 Type of Consult Neurology Reason for Consultation ams Requesting Provider: GLEN SARMIENTO Date/Time of Note DATE: 03/01/19 TIME: 20:53 Hx of Present Illness Patient is unable to contribute a Hx. It is elsewhere noted: The patient is 83-year-old female with history of coronary artery disease status post multiple cardiac stent placements, HTN, and Alzheimer dementia was brought to emergency room by her daughter from home due to altered mental status. Patient is become very somnolent somnolent since 12 noon yesterday. No fever or vomiting diarrhea were reported. Urinalysis was indicative of urinary tract infection. Patient was started on Rocephin and admitted for further evaluation and management to telemetry floor. Patient underwent a CT of the brain which was negative for any acute pathology. During the examination on the unit patient is awake alert and communicative however overall demented and cannot provide any history. Most of the history was obtained from patient's daughter and medical records. Patient had a history of cardiac stent placement in 1999 and [address] Rubio in cardiology consultation as an outpatient. Patient is admitted to [facility] to telemetry floor. limited by ams Objective Exam Vitals Vital Signs Date Temp Pulse Resp B/P (MAP) Pulse Ox O2 O2 Flow FiO2 Time Delivery Rate 03/01/19 98.4 100 20 120/58 99 Nasal 20:00 (78) Cannula 03/01/19 2.0 07:35 Intake and Output 02/28/19 02/28/19 03/01/19 1515:00 23:00 07:00 IntakeIntake Total 300 ml OutputOutput Total 500 ml BalanceBalance -200 ml Exam PE: Gen Appearance: No Apparent Distress HEENT: Normocephalic Cardiovascular: Regular rate Abdomen: Soft Extremities: Dry NE: The patient was alert though sparsely verbal. Cranial nerve examination was limited by mental status. Pupils were equal and reactive to light. There was no afferent pupillary defect. Funduscopic exami nation was limited. Face was grossly symmetric, w/ present corneal reflexes. Tone was normal. Muscle bulk was normal. I did not see fasciculations. The patient moved her limbs spontaneously and with good strength. Coordination and gait testing was limited by mental status. Arm and leg reflexes were within normal limits and symmetric. Orta's sign was absent. Plantar responses were flexor. Results Result Diagram: 03/01/1952703/01/19527 Results 24hrs Laboratory Tests Test 03/01/19 05:28 White Blood Count 9.5 Red Blood Count 3.90 L Hemoglobin 10.7 L Hematocrit 32.9 L Mean Corpuscular Volume 84.4 Mean Corpuscular Hemoglobin 27.4 L Mean Corpuscular Hemoglobin Concent 32.5 Red Cell Distribution Width 14.9 H Platelet Count 304 Mean Platelet Volume 10.4 Immature Granulocytes % 0.300 Neutrophils % 77.2 H Lymphocytes % 12.4 L Monocytes % 8.0 Eosinophils % 1.5 Basophils % 0.6 Nucleated Red Blood Cells % 0.0 Immature Granulocytes # 0.030 Neutrophils # 7.3 Lymphocytes # 1.2 Monocytes # 0.8 Eosinophils # 0.1 Basophils # 0.1 Nucleated Red Blood Cells # 0.0 Sodium Level 142 Potassium Level 3.9 Chloride Level 110 Carbon Dioxide Level 25 Anion Gap 7 Blood Urea Nitrogen 13 Creatinine 0.57 Est Glomerular Filtrat Rate mL/min Glucose Level 131 Calcium Level 8.8 Ammonia < 9 L Vitamin B12 Level 395 Thyroid Stimulating Hormone (TSH) 0.990 Free Thyroxine 1.61 Past Medical History Medical History: coronary artery disease, hypertension, other (Alzheimer's dementia) Home Meds Reported Medications Risperidone* (Risperidone*) 1 Mg Tablet, 1 MG PO TID PRN for AGITATION/ANXIETY, TAB 03/01/19 Duloxetine Hcl* (Cymbalta*) 60 Mg Capsule.dr, 60 MG PO DAILY, CAP 03/01/19 Clopidogrel Bisulfate (Clopidogrel) 75 Mg Tablet, 75 MG PO DAILY, #30 TAB 03/01/19 Gabapentin* (Gabapentin*) 100 Mg Capsule, 100 MG PO TID, #90 CAP 03/01/19 Amlodipine Besylate* (Norvasc*) 5 Mg Tablet, 5 MG PO DAILY, TAB 03/01/19 Atorvastatin* (Atorvastatin*) 40 Mg Tablet, 40 MG PO QHS, #30 TAB 03/01/19 Metoprolol Succinate* (Toprol XL*) 50 Mg Tab.er.24h, 50 MG PO DAILY, #30 TAB 03/01/19 Discontinued Scripts Cephalexin* (Keflex*) 500 Mg Capsule, 500 MG PO BID for 7 Days, CAP Prov:PAT FUENTES MD 02/15/19 Medications Current Medications Potassium Chloride/Dextrose/ Sod Cl 1,000 ml @ 75 mls/hr [id number] IV Last administered on 03/01/19 12:20; Admin Dose 75 MLS/HR; Start 02/28/19 at 23:00 Ceftriaxone Sodium 50 ml @ 100 mls/hr Q24H IVPB Last administered on 03/01/19 08:32; Admin Dose 100 MLS/HR; Start 03/01/19 at 09:00 Enoxaparin Sodium (Lovenox) 40 mg DAILY SC Last administered on 03/01/19 08:40; Admin Dose 40 MG; Start 03/01/19 at 09:00 Acetaminophen (Tylenol Supp) 650 mg Q6H PRN [place] PAIN LEVEL 1-5; Start 03/01/19 at 02:30 Acetaminophen (Tylenol Tab) 650 mg Q6H PRN PO MILD PAIN(1-3)OR ELEVATED TEMP Last administered on 03/01/19 13:31; Admin Dose 650 MG; Start 03/01/19 at 02:30 Clopidogrel Bisulfate (plaVIX) 75 mg DAILY PO Last administered on 03/01/19 13:27; Admin Dose 75 MG; Start 03/01/19 at 12:30 Metoprolol Tartrate (Lopressor) 50 mg DAILY PO Last administered on 03/01/19 13:26; Admin Dose 50 MG; Start 03/01/19 at 12:30 Amlodipine Besylate (Norvasc) 2.5 mg DAILY PO ; Start 03/02/19 at 09:00 Risperidone (Risperdal) 1 mg BID PRN PO agitation Last administered on 03/01/19at 20:37; Admin Dose 1 MG; Start 03/01/19 at 12:30 Allergies: Coded Allergies: No Known Allergy (Unverified , 02/15/19) Past Surgical History Past Surgical Hx: angioplasty, other (S/p multiple cardiac stents placement in 1999 and 2002) Social History Alcohol Use: none Smoking Status: Never smoker Drug Use: none LISA BOSTON Mar 01, 2019 20:59
[2019-03-02] MEDS: D5W-0.45 NACL + KCL 20 MEQ 1,000 ML IV SCH ×3 (01:40→15:00)
[2019-03-02 03:58] VITALS: BP 144/65; PULSE 100; RESP 20
[2019-03-02] MEDS ORDERED: PENDING SANTYL ORDER FOR WOUND CARE XX PRN (04:30)
[2019-03-02 07:20] VITALS: BP 119/68; PULSE 115; RESP 18
[2019-03-02] MEDS: CEFTRIAXONE 1 GM/50 ML (PMX) 50 ML IVPB SCH (08:44)
[2019-03-02] MEDS: CLOPIDOGREL 75 MG TAB PO SCH (08:45)
[2019-03-02] MEDS: METOPROLOL 50 MG TAB PO SCH ×2 (08:45→20:38)
[2019-03-02] MEDS: AMLODIPINE 2.5 MG TAB PO SCH (08:46)
[2019-03-02] MEDS: ENOXAPARIN 40 MG/0.4 ML SYG SC SCH (08:47)
[2019-03-02] MEDS: DULOXETINE 30 MG CAP DR PO SCH (09:14)
--- NOTE | 2019-03-02 09:36 | CONS ---
Assessment/Plan Assessment/Plan Assessment/Plan (Recall) 83 F c/ dementia and other comorbidities, who presents for evaluation of ams. UA +...which could certainly precipitate an acute toxic-metabolic on chronic encephalopathy.. MRI brain is reassuringly negative for acute intracranial pathology. P: Continued medical management and supportive care per primary [place] as able Limit sedating medications where possible PT/OT/ST as tolerated Consider EEG if her mental status begins to noticeably fluctuate. Will follow clinically Consultation Date/Type/Reason Admit Date/Time Feb 28, 2019 at 19:52 Type of Consult Neurology Reason for Consultation ams Requesting Provider: GLEN SARMIENTO Date/Time of Note DATE: 03/02/19 TIME: 09:35 24 HR Interval Summary Free Text/Dictation Continues acute care Exam/Review of Systems Exam Vitals Vital Signs Date Temp Pulse Resp B/P (MAP) Pulse Ox O2 O2 Flow FiO2 Time Delivery Rate 03/02/19 99.0 115 18 119/68 100 07:20 (85) 03/02/19 Nasal 03:58 Cannula 03/01/19 2.0 07:35 Intake and Output 03/01/19 03/01/19 03/02/19 1515:00 23:00 07:00 IntakeIntake Total 240 ml 460 ml 120 ml OutputOutput Total 900 ml 600 ml BalanceBalance 240 ml -440 ml -480 ml Results Result Diagram: 03/02/19 0523 03/02/19 0523 Results 24hrs Laboratory Tests Test 03/02/19 05:23 White Blood Count 10.5 Red Blood Count 4.08 L Hemoglobin 11.0 L Hematocrit 34.9 L Mean Corpuscular Volume 85.5 Mean Corpuscular Hemoglobin 27.0 L Mean Corpuscular Hemoglobin Concent 31.5 L Red Cell Distribution Width 14.6 H Platelet Count 330 Mean Platelet Volume 10.6 H Immature Granulocytes % 0.400 Neutrophils % 74.9 Lymphocytes % 13.1 L Monocytes % 9.1 Eosinophils % 2.0 Basophils % 0.5 Nucleated Red Blood Cells % 0.0 Immature Granulocytes # 0.040 H Neutrophils # 7.9 H Lymphocytes # 1.4 Monocytes # 1.0 H Eosinophils # 0.2 Basophils # 0.1 Nucleated Red Blood Cells # 0.0 Sodium Level 141 Potassium Level 4.0 Chloride Level 106 Carbon Dioxide Level 27 Anion Gap 8 Blood Urea Nitrogen 10 Creatinine 0.59 Est Glomerular Filtrat Rate mL/min Glucose Level 132 Calcium Level 9.2 Medications Medication Current Medications Potassium Chloride/Dextrose/ Sod Cl 1,000 ml @ 75 mls/hr [id number] IV Last administered on 03/02/19 08:50; Admin Dose 75 MLS/HR; Start 02/28/19 at 23:00 Ceftriaxone Sodium 50 ml @ 100 mls/hr Q24H IVPB Last administered on 03/02/19 08:44; Admin Dose 100 MLS/HR; Start 03/01/19 at 09:00 Enoxaparin Sodium (Lovenox) 40 mg DAILY SC Last administered on 03/02/19 08:47; Admin Dose 40 MG; Start 03/01/19 at 09:00 Acetaminophen (Tylenol Supp) 650 mg Q6H PRN [place] PAIN LEVEL 1-5; Start 03/01/19 at 02:30 Acetaminophen (Tylenol Tab) 650 mg Q6H PRN PO MILD PAIN(1-3)OR ELEVATED TEMP Last administered on 03/01/19 13:31; Admin Dose 650 MG; Start 03/01/19 at 02:30 Clopidogrel Bisulfate (plaVIX) 75 mg DAILY PO Last administered on 03/02/19 08:45; Admin Dose 75 MG; Start 03/01/19 at 12:30 Metoprolol Tartrate (Lopressor) 50 mg DAILY PO Last administered on 03/02/19 08:45; Admin Dose 50 MG; Start 03/01/19 at 12:30 Amlodipine Besylate (Norvasc) 2.5 mg DAILY PO Last administered on 03/02/19 08:46; Admin Dose 2.5 MG; Start 03/02/19 at 09:00 Risperidone (Risperdal) 1 mg BID PRN PO agitation Last administered on 03/01/19 20:37; Admin Dose 1 MG; Start 03/01/19 at 12:30 Miscellaneous Information (Pending Santyl Order For Wound Care) This patient raymundo... PRN PRN XX WOUND CARE; Start 03/02/19 at 04:30 Atorvastatin Calcium (Lipitor) 40 mg QHS PO ; Start 03/02/19 at 21:00 Duloxetine HCl (Cymbalta) 60 mg DAILY PO Last administered on 7/9/19at 09:14; Admin Dose 60 MG; Start 03/02/19 at 09:00 LISA BOSTON Mar 02, 2019 09:36
[2019-03-02 11:03] VITALS: BP 129/70; PULSE 92; RESP 17
--- NOTE | 2019-03-02 11:22 | PN ---
Date/Time of Note Date/Time of Note DATE: 03/02/19 TIME: 11:19 Subjective Patient is alert and comfortable. She is disoriented to time and place. Follows commands Objective Vitals Vital Signs Date Temp Pulse Resp B/P (MAP) Pulse Ox O2 O2 Flow FiO2 Time Delivery Rate 03/02/19 98.8 92 17 129/70 98 11:03 (89) 03/02/19 Nasal 03:58 Cannula 03/01/19 2.0 07:35 Intake and Output 03/01/19 03/01/19 03/02/19 1515:00 23:00 07:00 IntakeIntake Total 240 ml 460 ml 120 ml OutputOutput Total 900 ml 600 ml BalanceBalance 240 ml -440 ml -480 ml Neck is supple Lungs clear to auscultation bilaterally Cardiac regular rate and rhythm Abdomen soft nontender nondistended normoactive bowel sounds No edema Grossly nonfocal except altered mentation Results Result Diagram: 03/02/19 0523 03/02/19 05 Medications Medications Current Medications Potassium Chloride/Dextrose/ Sod Cl 1,000 ml @ 75 mls/hr [id number] IV Last administered on 03/02/19at 08:50; Admin Dose 75 MLS/HR; Start 02/28/19 at 23:00 Ceftriaxone Sodium 50 ml @ 100 mls/hr Q24H IVPB Last administered on 03/02/19 08:44; Admin Dose 100 MLS/HR; Start 03/01/19 at 09:00 Enoxaparin Sodium (Lovenox) 40 mg DAILY SC Last administered on 03/02/19 08:47; Admin Dose 40 MG; Start 03/01/19 at 09:00 Acetaminophen (Tylenol Supp) 650 mg Q6H PRN [place] PAIN LEVEL 1-5; Start 03/01/19 at 02:30 Acetaminophen (Tylenol Tab) 650 mg Q6H PRN PO MILD PAIN(1-3)OR ELEVATED TEMP Last administered on 03/01/19at 13:31; Admin Dose 650 MG; Start 03/01/19 at 02:30 Clopidogrel Bisulfate (plaVIX) 75 mg DAILY PO Last administered on 03/02/19at 08:45; Admin Dose 75 MG; Start 03/01/19 at 12:30 Metoprolol Tartrate (Lopressor) 50 mg DAILY PO Last administered on 7/9/19at 08:45; Admin Dose 50 MG; Start 03/01/19 at 12:30 Amlodipine Besylate (Norvasc) 2.5 mg DAILY PO Last administered on 03/02/19 08:46; Admin Dose 2.5 MG; Start 03/02/19 at 09:00 Risperidone (Risperdal) 1 mg BID PRN PO agitation Last administered on 03/01/19at 20:37; Admin Dose 1 MG; Start 03/01/19 at 12:30 [facility] This patient raymundo... PRN PRN XX WOUND CARE; Start 03/02/19 at 04:30 Atorvastatin Calcium (Lipitor) 40 mg QHS PO ; Start 03/02/19 at 21:00 Duloxetine HCl (Cymbalta) 60 mg DAILY PO Last administered on 03/02/19at 09:14; Admin Dose 60 MG; Start 03/02/19 at 09:00 VTE Prophylaxis Risk score (from Nsg)>0 risk: 7 SCD applied (from Nsg): Yes Lines/Catheters IV Catheter Type: Saline Lock [place] in Place: No Assessment/Plan Assessment/Plan 83-year-old female with altered mental status, most likely due to underlying dementia Advanced Alzheimer's dementia. Patient did not tolerate Aricept and Namenda in the past UTI Coronary artery disease Hypertension Chronic debilitation Continue IV antibiotics Case management requested for SNF placement Patient will benefit from physical therapy at the skilled facility Case was discussed with her daughter at the bedside. EMI BALLARD MD Mar 02, 2019 11:22
[2019-03-02 15:15] VITALS: BP 165/77; PULSE 112; RESP 17
--- NOTE | 2019-03-02 16:08 | PN ---
Date/Time of Note Date/Time of Note DATE: 03/02/19 TIME: 16:07 Assessment/Plan VTE Prophylaxis Risk score (from Ns)>0 risk: 7 SCD applied (from Ns): Yes Pharmacological prophylaxis: LMWH Lines/Catheters IV [facility]ter [facility]from [facility] Saline Lock Urinary Cath still in place: No Assessment/Plan Hospital Course Patient is awake confused with occasional sinus tachycardia, MRI noted negative for acute stroke, continue current care. Assessment/Plan -Altered mental status. Rule out acute stroke. CT of the brain is negative for acute stroke. MRI is negative for acute stroke. Dr. Chao is following in neurology consultation. -UTI per UA, continue Rocephin follow-up on final culture. -Coronary artery disease status post stent placement. Continue Plavix. Dr. Lorna mahmood is asked to see patient in cardiology consultation. -Hypertension, continue metoprolol and Norvasc. -Acute encephalopathy -Alzheimer dementia Further recommendations based on clinical course. Plan of care discussed with Dr. Polacno. Result Diagram: 03/02/1952203/02/1923 Results 24hrs Laboratory Tests Test 03/02/19 05:23 White Blood Count 10.5 Red Blood Count 4.08 L Hemoglobin 11.0 L Hematocrit 34.9 L Mean Corpuscular Volume 85.5 Mean Corpuscular Hemoglobin 27.0 L Mean Corpuscular Hemoglobin Concent 31.5 L Red Cell Distribution Width 14.6 H Platelet Count 330 Mean Platelet Volume 10.6 H Immature Granulocytes % 0.400 Neutrophils % 74.9 Lymphocytes % 13.1 L Monocytes % 9.1 Eosinophils % 2.0 Basophils % 0.5 Nucleated Red Blood Cells % 0.0 Immature Granulocytes # 0.040 H Neutrophils # 7.9 H Lymphocytes # 1.4 Monocytes # 1.0 H Eosinophils # 0.2 Basophils # 0.1 Nucleated Red Blood Cells # 0.0 Sodium Level 141 Potassium Level 4.0 Chloride Level 106 Carbon Dioxide Level 27 Anion Gap 8 Blood Urea Nitrogen 10 Creatinine 0.59 Est Glomerular Filtrat Rate mL/min Glucose Level 132 Calcium Level 9.2 Exam/Review of Systems Exam Vitals Vital Signs Date Temp Pulse Resp B/P (MAP) Pulse Ox O2 O2 Flow FiO2 Time Delivery Rate 03/02/19 98.0 112 17 165/77 97 15:15 (106) 03/02/19 Nasal 2.0 08:00 Cannula Intake and Output 03/01/19 03/01/19 03/02/19 1515:00 23:00 07:00 IntakeIntake Total 240 ml 460 ml 120 ml OutputOutput Total 900 ml 600 ml BalanceBalance 240 ml -440 ml -480 ml Exam Constitutional: alert Head: normocephalic Neck: supple Respiratory: clear to auscultation Cardiovascular: regular rate and rhythm Gastrointestinal: soft, non-tender Musculoskeletal: nl extremities to inspection Extremities: normal pulses Neurological: confused Results Results 24hrs Laboratory Tests Test 03/02/19 05:23 White Blood Count 10.5 Red Blood Count 4.08 L Hemoglobin 11.0 L Hematocrit 34.9 L Mean Corpuscular Volume 85.5 Mean Corpuscular Hemoglobin 27.0 L Mean Corpuscular Hemoglobin Concent 31.5 L Red Cell Distribution Width 14.6 H Platelet Count 330 Mean Platelet Volume 10.6 H Immature Granulocytes % 0.400 Neutrophils % 74.9 Lymphocytes % 13.1 L Monocytes % 9.1 Eosinophils % 2.0 Basophils % 0.5 Nucleated Red Blood Cells % 0.0 Immature Granulocytes # 0.040 H Neutrophils # 7.9 H Lymphocytes # 1.4 Monocytes # 1.0 H Eosinophils # 0.2 Basophils # 0.1 Nucleated Red Blood Cells # 0.0 Sodium Level 141 Potassium Level 4.0 Chloride Level 106 Carbon Dioxide Level 27 Anion Gap 8 Blood Urea Nitrogen 10 Creatinine 0.59 Est Glomerular Filtrat Rate mL/min Glucose Level 132 Calcium Level 9.2 Medications Medication Current Medications Potassium Chloride/Dextrose/ Sod Cl 1,000 ml @ 75 mls/hr [id number] IV Last administered on 03/02/19at 08:50; Admin Dose 75 MLS/HR; Start 02/28/19 at 23:00 Ceftriaxone Sodium 50 ml @ 100 mls/hr Q24H IVPB Last administered on 03/02/19at 08:44; Admin Dose 100 MLS/HR; Start 03/01/19 at 09:00 Enoxaparin Sodium (Lovenox) 40 mg DAILY SC Last administered on 03/02/19at 08:47; Admin Dose 40 MG; Start 03/01/19 at 09:00 Acetaminophen (Tylenol Supp) 650 mg Q6H PRN [place] PAIN LEVEL 1-5; Start 03/01/19 at 02:30 Acetaminophen (Tylenol Tab) 650 mg Q6H PRN PO MILD PAIN(1-3)OR ELEVATED TEMP Last administered on 03/01/19 13:31; Admin Dose 650 MG; Start 03/01/19 at 02:30 Clopidogrel Bisulfate (plaVIX) 75 mg DAILY PO Last administered on 03/02/19 08:45; Admin Dose 75 MG; Start 03/01/19 at 12:30 Metoprolol Tartrate (Lopressor) 50 mg DAILY PO Last administered on 03/02/19 08:45; Admin Dose 50 MG; Start 03/01/19 at 12:30 Amlodipine Besylate (Norvasc) 2.5 mg DAILY PO Last administered on 03/02/19 08:46; Admin Dose 2.5 MG; Start 03/02/19 at 09:00 Risperidone (Risperdal) 1 mg BID PRN PO agitation Last administered on 03/01/19 20:37; Admin Dose 1 MG; Start 03/01/19 at 12:30 [facility] This patient raymundo... PRN PRN XX WOUND CARE; Start 03/02/19 at 04:30 Atorvastatin Calcium (Lipitor) 40 mg QHS PO ; Start 03/02/19 at 21:00 Duloxetine HCl (Cymbalta) 60 mg DAILY PO Last administered on 03/02/19 09:14; Admin Dose 60 MG; Start 03/02/19 at 09:00 GLEN SARMIENTO Mar 02, 2019 16:08
--- NOTE | 2019-03-02 17:52 | CONS ---
Assessment/Plan Assessment/Plan Hospital Course (Demo Recall) Sinus tachycardia SIRS Encephalopathy CAD with history of PCI Patient with an altered mental status and possible sepsis Telemetry reviewed with sinus tachycardia with overall mild improvement in heart rates Tachycardia likely secondary to overall medical condition. We will continue beta-jong and adjust dosing Antibiotics as per primary team We will check echocardiogram Consultation Date/Type/Reason Admit Date/Time Feb 28, 2019 at 19:52 Initial Consult Date Type of Consult Cardiology Requesting Provider: GLEN SARMIENTO Date/Time of Note DATE: 03/02/19 TIME: 17:51 24 HR Interval Summary Free Text/Dictation Patient seen and examined, overall better as per daughter at bedside Exam/Review of Systems Vital Signs Vitals Vital Signs Date Temp Pulse Resp B/P (MAP) Pulse Ox O2 O2 Flow FiO2 Time Delivery Rate 03/02/19 98.0 112 17 165/77 97 15:15 (106) 03/02/19 Nasal 2.0 08:00 Cannula Intake and Output 03/01/19 03/01/19 03/02/19 1515:00 23:00 07:00 IntakeIntake Total 240 ml 460 ml 120 ml OutputOutput Total 900 ml 600 ml BalanceBalance 240 ml -440 ml -480 ml Exam Exam Awake, no apparent distress, not following commands, family at bedside Head: normocephalic Respiratory: other (Coarse breath sounds bilaterally, no wheezing) Cardiovascular: regular rate and rhythm (S1-S2 heard) Gastrointestinal: soft, non-tender, bowel sounds Extremities: other (No significant edema) Labs Result Diagram: 03/02/19 0523 03/02/19 0523 Results 24hrs Laboratory Tests Test 03/02/19 05:23 White Blood Count 10.5 Red Blood Count 4.08 L Hemoglobin 11.0 L Hematocrit 34.9 L Mean Corpuscular Volume 85.5 Mean Corpuscular Hemoglobin 27.0 L Mean Corpuscular Hemoglobin Concent 31.5 L Red Cell Distribution Width 14.6 H Platelet Count 330 Mean Platelet Volume 10.6 H Immature Granulocytes % 0.400 Neutrophils % 74.9 Lymphocytes % 13.1 L Monocytes % 9.1 Eosinophils % 2.0 Basophils % 0.5 Nucleated Red Blood Cells % 0.0 Immature Granulocytes # 0.040 H Neutrophils # 7.9 H Lymphocytes # 1.4 Monocytes # 1.0 H Eosinophils # 0.2 Basophils # 0.1 Nucleated Red Blood Cells # 0.0 Sodium Level 141 Potassium Level 4.0 Chloride Level 106 Carbon Dioxide Level 27 Anion Gap 8 Blood Urea Nitrogen 10 Creatinine 0.59 Est Glomerular Filtrat Rate mL/min Glucose Level 132 Calcium Level 9.2 Medications Medications Current Medications Potassium Chloride/Dextrose/ Sod Cl 1,000 ml @ 75 mls/hr [id number] IV Last administered on 03/02/19 08:50; Admin Dose 75 MLS/HR; Start 02/28/19 at 23:00 Ceftriaxone Sodium 50 ml @ 100 mls/hr Q24H IVPB Last administered on 03/02/19 08:44; Admin Dose 100 MLS/HR; Start 03/01/19 at 09:00 Enoxaparin Sodium (Lovenox) 40 mg DAILY SC Last administered on 03/02/19 08:47; Admin Dose 40 MG; Start 03/01/19 at 09:00 Acetaminophen (Tylenol Supp) 650 mg Q6H PRN [place] PAIN LEVEL 1-5; Start 03/01/19 at 02:30 Acetaminophen (Tylenol Tab) 650 mg Q6H PRN PO MILD PAIN(1-3)OR ELEVATED TEMP Last administered on 03/01/19 13:31; Admin Dose 650 MG; Start 03/01/19 at 02:30 Clopidogrel Bisulfate (plaVIX) 75 mg DAILY PO Last administered on 03/02/19 08:45; Admin Dose 75 MG; Start 03/01/19 at 12:30 Metoprolol Tartrate (Lopressor) 50 mg DAILY PO Last administered on 03/02/19 08:45; Admin Dose 50 MG; Start 03/01/19 at 12:30 Amlodipine Besylate (Norvasc) 2.5 mg DAILY PO Last administered on 03/02/19 08:46; Admin Dose 2.5 MG; Start 03/02/19 at 09:00 Risperidone (Risperdal) 1 mg BID PRN PO agitation Last administered on 03/01/19 20:37; Admin Dose 1 MG; Start 03/01/19 at 12:30 Miscellaneous Information (Pending [facility] Order For Wound Care) This patient raymundo... PRN PRN XX WOUND CARE; Start 03/02/19 at 04:30 Atorvastatin Calcium (Lipitor) 40 mg QHS PO ; Start 03/02/19 at 21:00 Duloxetine HCl (Cymbalta) 60 mg DAILY PO Last administered on 03/02/19at 09:14; Admin Dose 60 MG; Start 03/02/19 at 09:00 Noel Rush DO Mar 02, 2019 17:52
--- NOTE | 2019-03-02 19:25 | RADRPT ---
Echocardiogram Report Patient Name: Shabnam LUU ID: [id number] : [id number] (83y 9m)Study Date: 03/01/2019 2:48:06 PM Gender: FAccession #: [id number] Tech: AjRianna Jara [facility] Location: [id number] Ref.Physician: NOEL RUSH Height(Cm): BSA: Weight(Kg): Quality: AdequateOrder Physician: NOEL RUSH Account #: Procedures: Echocardiographic Report: Transthoracic echocardiogram with complete 2D, M-Mode, and doppler examination. Indications: Tachycardia. Measurements: 2D/M Mode Doppler Measurement Value Normal Range Measurement Value Normal Range LVIDd 2D 3.4 [ 3.8 - 5.2 ] cm AV Peak Gio 1.6 [ 100.0 - 170.0 ] cm/sec LVIDs 2D 2.2 [ 2.2 - 3.5 ] cm AV Peak PG 10.0 [ 2.0 - 9.0 ] mmHg LVPWd 2D 0.9 [ 0.6 - 0.9 ] cm LVOT Peak Gio 1.2 [ 70.0 - 110.0 ] cm/sec IVSd 2D 1.0 [ 0.6 - 0.9 ] cm LVOT Peak PG 6.0 [ 2.0 - 6.0 ] mmHg AoR Diam 2D 2.5 [ 2.3 - 3.1 ] cm MV E Peak Gio 0.9 [ 60.0 - 130.0 ] cm/sec EDV 2D 47.1 [ 46.0 - 106.0 ] ml MV A Peak Gio 1.2 [ 100.0 - 120.0 ] cm/sec ESV 2D 16.2 [ 14.0 - 42.0 ] ml MV E/A 0.7 [ 0.8 - 1.5 ] ratio EF 2D 65.6 [ 54.0 - 74.0 ] percent MV Decel Time 165 [ 104 - 258 ] msec LA Dimen 2D 2.9 [ 2.7 - 3.8 ] cm Lat E` Gio 0.1 [ 10.0 - 15.0 ] cm/sec Lateral E/E` 12.0 [ 1.0 - 2.0 ] ratio Med E` Gio 0.1 cm/sec MV E/A 0.7 [ 0.8 - 1.5 ] ratio TR Peak Gio 2.7 [ 100.0 - 280.0 ] cm/sec TR Peak PG 30.0 mmHg RVSP 38.0 [ 10.0 - 36.0 ] mmHg RA Pressure 8.0 mmHg Findings: Left Ventricle: Normal left ventricular systolic function. Normal left ventricular cavity size. Normal left ventricular wall thickness. Ejection fraction is visually estimated at 60 %. Tissue Doppler/Mitral Doppler indices are consistent with impaired relaxation (Stage I diastolic dysfunction). Right Ventricle: Normal right ventricular size. Normal right ventricular systolic function. Left Atrium: The left atrium is normal in size. Right Atrium: The right atrium is normal in size. Mitral Valve: Normal appearance and function of the mitral valve with trace physiologic regurgitation. Aortic Valve: No significant aortic stenosis or insufficiency. Aortic cusps appear mildly calcified. Tricuspid Valve: Normal appearance of the tricuspid valve. The estimated Peak RVSP is 38 mmHg. There is trace tricuspid regurgitation. Pulmonic Valve: Normal pulmonic valve appearance. Pericardium: Normal pericardium with no significant pericardial effusion. Aorta: Normal aortic root. IVC: Normal size and no respiratory collapse consistent with elevated right atrial pressure. Conclusions: Normal left ventricular systolic function. Normal left ventricular cavity size. Normal left ventricular wall thickness. Ejection fraction is visually estimated at 60 %. Tissue Doppler/Mitral Doppler indices are consistent with impaired relaxation (Stage I diastolic dysfunction). Normal right ventricular size. Normal right ventricular systolic function. The left atrium is normal in size. The right atrium is normal in size. No significant valvular stenosis or regurgitation seen. Normal pericardium with no significant pericardial effusion. Electronically Signed By: Noel Rush 2019-03-02 19:24:44 PDT
[2019-03-02 20:00] VITALS: BP 150/63; PULSE 125; RESP 18
[2019-03-02] MEDS: ATORVASTATIN 40 MG TAB PO SCH (20:37)
[2019-03-02] MEDS: ACETAMINOPHEN 325 MG TAB PO PRN (20:38)
[2019-03-03] VITALS: BP 118/63; PULSE 89; RESP 18
[2019-03-03] MEDS: D5W-0.45 NACL + KCL 20 MEQ 1,000 ML IV SCH (03:56)
[2019-03-03 04:00] VITALS: BP 155/83; PULSE 89; RESP 17
[2019-03-03 07:14] VITALS: BP 139/68; PULSE 102; RESP 18
[2019-03-03] MEDS: CLOPIDOGREL 75 MG TAB PO SCH (08:31)
[2019-03-03] MEDS: CEFTRIAXONE 1 GM/50 ML (PMX) 50 ML IVPB SCH (08:31)
[2019-03-03] MEDS: ENOXAPARIN 40 MG/0.4 ML SYG SC SCH (08:34)
[2019-03-03] MEDS: DULOXETINE 30 MG CAP DR PO SCH (08:38)
[2019-03-03] MEDS: METOPROLOL 50 MG TAB PO SCH ×2 (08:39→20:47)
[2019-03-03] MEDS: AMLODIPINE 2.5 MG TAB PO SCH (08:39)
[2019-03-03] MEDS ORDERED: ENOX40DI2 SC (10:30)
[2019-03-03 11:09] VITALS: BP 125/58; PULSE 97; RESP 17
--- NOTE | 2019-03-03 14:09 | CONS ---
Assessment/Plan Assessment/Plan Hospital Course (Demo Recall) Sinus tachycardia Preserved left ventricular ejection fraction SIRS/sepsis Encephalopathy CAD with history of PCI Patient with an altered mental status and possible sepsis Telemetry reviewed with sinus tachycardia with overall improvement in heart rates Tachycardia likely secondary to overall medical condition. Continue beta-jong and titrate as needed Antibiotics as per primary team Consultation Date/Type/Reason Admit Date/Time Feb 28, 2019 at 19:52 Initial Consult Date Type of Consult Cardiology Requesting Provider: GLEN SARMIENTO Date/Time of Note DATE: 03/03/19 TIME: 14:07 24 HR Interval Summary Free Text/Dictation Patient seen and examined. Family bedside, still not speaking overall looks better Exam/Review of Systems Vital Signs Vitals Vital Signs Date Temp Pulse Resp B/P (MAP) Pulse Ox O2 O2 Flow FiO2 Time Delivery Rate 03/03/19 98.4 97 17 125/58 98 11:09 (80) 03/03/19 Nasal 2.0 08:00 Cannula Intake and Output 03/02/19 03/02/19 03/03/19 1515:00 23:00 07:00 IntakeIntake Total 820 ml 300 ml 1000 ml OutputOutput Total 1000 ml 1100 ml 700 ml BalanceBalance -180 ml -800 ml 300 ml Exam Exam Awake, no apparent distress, not speaking, daughter at bedside Head: normocephalic Respiratory: other (Coarse breath sounds bilaterally, no wheezing) Cardiovascular: regular rate and rhythm (S1-S2 heard) Gastrointestinal: soft, non-tender, bowel sounds Extremities: edema Labs Result Diagram: 03/02/1952203/02/19 0523 Results 24hrs Laboratory Tests Test 03/02/19 20:32 Bedside Glucose 154 Medications Medications Current Medications Enoxaparin Sodium (Lovenox) 40 mg DAILY SC Last administered on 03/03/19at 08:34; Admin Dose 40 MG; Start 03/01/19 at 09:00 Acetaminophen (Tylenol Supp) 650 mg Q6H PRN [place] PAIN LEVEL 1-5; Start 03/01/19 at 02:30 Acetaminophen (Tylenol Tab) 650 mg Q6H PRN PO MILD PAIN(1-3)OR ELEVATED TEMP Last administered on 03/02/19at 20:38; Admin Dose 650 MG; Start 03/01/19 at 02:30 Clopidogrel Bisulfate (plaVIX) 75 mg DAILY PO Last administered on 03/03/19 08:31; Admin Dose 75 MG; Start 03/01/19 at 12:30 Amlodipine Besylate (Norvasc) 2.5 mg DAILY PO Last administered on 03/03/19 08:39; Admin Dose 2.5 MG; Start 03/02/19 at 09:00 Risperidone (Risperdal) 1 mg BID PRN PO agitation Last administered on 03/01/19 20:37; Admin Dose 1 MG; Start 03/01/19 at 12:30 [facility] This patient raymundo... PRN PRN XX WOUND CARE; Start 03/02/19 at 04:30 Atorvastatin Calcium (Lipitor) 40 mg QHS PO Last administered on 03/02/19 20:37; Admin Dose 40 MG; Start 03/02/19 at 21:00 Duloxetine HCl (Cymbalta) 60 mg DAILY PO Last administered on 03/03/19 08:38; Admin Dose 60 MG; Start 03/02/19 at 09:00 Metoprolol Tartrate (Lopressor) 50 mg BID PO Last administered on 03/03/19 08:39; Admin Dose 50 MG; Start 03/02/19 at 21:00 Noel Rush DO Mar 03, 2019 14:09
[2019-03-03 15:29] VITALS: BP 135/60; PULSE 99; RESP 18
[2019-03-03 20:00] VITALS: BP 141/73; PULSE 116; RESP 18
[2019-03-03] MEDS: ATORVASTATIN 40 MG TAB PO SCH (20:47)
[2019-03-03] MEDS: ACETAMINOPHEN 325 MG TAB PO PRN (22:26)
[2019-03-04] VITALS: BP 132/56; PULSE 77; RESP 18
[2019-03-04 04:00] VITALS: BP 136/62; PULSE 81; RESP 18
--- NOTE | 2019-03-04 04:23 | DS ---
DATE OF ADMISSION: 02/28/2019 DATE OF DISCHARGE: DISCHARGE DIAGNOSES: 1. An 83-year-old female with altered mental status, most likely due to progression of underlying de mentia. 2. Advanced Alzheimer's dementia. 3. Coronary artery disease, stable. 4. Sinus tachycardia, resolved. 5. Hypertension, stable. 6. Chronic debilitation. HOSPITAL COURSE: An 83-year-old female with advanced Alzheimer's dementia was brought in to emergenc y room with altered mental status. Laboratory work was within normal limits. The patient had 15 whi te blood cells in the urine and started on empiric antibiotic therapy. Her urine culture showed mixe d gram-positive organism which is most likely a contaminant. [place] count was less than 10,000. I h ad a long discussion with her daughter. Altered mentation is most likely due to progression of her u nderlying dementia. The patient did not tolerate Aricept and Namenda in the past. She can benefit f rom a long term facility for physical therapy and rehabilitation. The patient was seen in consultation by Dr. Rush due to underlying sinus tachycardia. She was star brielle on metoprolol. Her heart rate is better controlled. The patient is in a stable condition for tr ansition to long term facility. MEDICATIONS ON DISCHARGE: 1. Lovenox 40 mg subcu daily. 2. Amlodipine 5 mg daily. 3. Atorvastatin 40 mg at bedtime. 4. Plavix 75 mg daily. 5. Cymbalta 60 mg daily. 6. Gabapentin 100 mg t.i.d. 7. Toprol-XL 50 mg daily. 8. Risperidone 1 mg t.i.d. DISCHARGE INSTRUCTIONS: 1. Continue physical therapy at the skilled facility. 2. Follow up with PCP in 1 week. Dictated By: EMI GASPAR/NTS Conf#: [id number] DID#: [id number] CC: BREANA BRADSHAW MD;*End*
[2019-03-04 08:31] VITALS: BP 130/64; PULSE 100; RESP 19
[2019-03-04] MEDS: CLOPIDOGREL 75 MG TAB PO SCH (09:39)
[2019-03-04] MEDS: AMLODIPINE 2.5 MG TAB PO SCH (09:40)
[2019-03-04] MEDS: METOPROLOL 50 MG TAB PO SCH (09:41)
[2019-03-04] MEDS: DULOXETINE 30 MG CAP DR PO SCH (09:41)
[2019-03-04] MEDS: ENOXAPARIN 40 MG/0.4 ML SYG SC SCH (10:30)
[2019-03-04 11:22] VITALS: BP 137/65; PULSE 94; RESP 18
== END 2019-03-04 14:11 | DRG 56 ==
LOC: E/R 17:51 → 6WM 19:52 → CANRESERV 23:22
PROVIDERS: ADMIT Internal Medicine; ATTEND Internal Medicine
DX: G30.9 Alzheimer's disease, unspecified (principal); G92 Toxic encephalopathy; N39.0 Urinary tract infection, site not specified; F02.80 Dementia in other diseases classified elsewhere, unspecified severity, without behavioral disturbance, psychotic disturbance, mood disturbance, and anxiety; I25.10 Atherosclerotic heart disease of native coronary artery without angina pectoris; I25.2 Old myocardial infarction; I10 Essential (primary) hypertension; R00.0 Tachycardia, unspecified; Z95.5 Presence of coronary angioplasty implant and graft
CPT/HCPCS: 36415; 70450; 70551; 71045; 80048; 80053; 80307; 81001; 82140; 82607; 82962; 83605; 84439; 84443; 84484; 85025; 85610; 85730; 87086; 92526; 92610; 93005; 93306; 97163; J0696; J1650; J3480; J7030; J7040